=== PATIENT | female | born 1935 | race Asian ===

== ENCOUNTER 2016-11-27 14:50 | Inpatient (IN) | payer OTHER ==
[~2016-11-27 14:50] MED LIST: ADULT LOW DOSE81 MG PO; ASPIRIN325 M2 PO; CARVEDILOL25 M1 PO; CARVEDILOL6.25 M1 PO; COREG12.5 M1 PO; COREG25 M1 PO; FUROSEMIDE40 M1 PO; LISINOPRIL20 M1 PO; LISINOPRIL5 M1 PO; PLAVIX75 M1 PO; PRAVASTATIN SOD80 M2 PO; RANEXA500 M1 PO; VALSARTAN80 M1 PO
--- NOTE | 2016-11-27 16:27 | History & Physical ---
General Information and HPI Chief Complaint: admit to hospice s/p terminal extubation Source of Information: old records Exam Limitations: unable to give history, clinical condition Associated Symptoms: labored respirations History of Present Illness: Pt. is an 81-year-old female s/p VT cardiac arrest, s/p CPR with anoxic brain injury and poor prognosis per neurology. Repeat head CT 4 days post arrest showed significant interval increase in conspicuity of diffuse anoxic brain injury with new near total loss of toth- white distinction, sulcal effacement, and mass effect on the lateral and fourth ventricles. Family decided to have pt extubated, she is stable past extubation though with labored respirations and is admitted to hospice service. 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 Former smoker Functional Ability: Had lived at home. Review of Systems Review of Systems Constitutional: Reports: see HPI. Exam & Diagnostic Data Last 24 Hrs of Vital Signs/I&O T-98.6, HR-65; RR- 12; BP-185/44 Physical Exam General Appearance elderly female, comatose, labored respirations HEENT Atraumatic, dry mucous membranes Cardiovascular Regular Rate, Normal S1, Normal S2 Lungs labored respirations, abdominal breathing, tracheal secretions Abdomen Soft, No Tenderness Neurological comatose Extremities edema to bilat hands Diagnostic Data CXR Results earlier today: IMPRESSION: 1. Endotracheal tube tip 3.9 cm above the diya. 2. Enteric tube tip not included. 3. Enlarged cardiomediastinal silhouette and thoracic aortic aneurysm again seen, unchanged. 4. Bibasilar opacities, most consistent with pleural effusions and associated consolidation or atelectasis. Other Results EEG 11/22/16: Impression: Flat lined nearly complete isoelectric recording that is consistent with minimal brain activity. Head CT 7/15/17: IMPRESSION: Significant interval increase in conspicuity of diffuse anoxic brain injury with new near total loss of toth-white distinction, sulcal effacement, and mass effect on the lateral and fourth ventricles. Assessment/Plan Assessment: Pt. is an 81-year-old female s/p VT cardiac arrest, s/p CPR with anoxic brain injury, near total loss of ttoh-white distinction and edema with mass effect and poor prognosis per neurology. Plan: Continue Keppra 1gm IV Q12 hrs Start morphine drip at 3mg /hr after bolus of 4mg IV. titrate drip per protocol Continue scop. patch for secretions, start Robinul 400mcg IV every 4 hrs Continue monk catheter Ativan 1mg IV every 3 hrs as needed for anxiety/restlessness
[2016-11-28] VITALS: BP 108/70
--- NOTE | 2016-11-28 01:24 | NUR ---
0000 PATIENT RECEIVED UNRESPONSIVE, FAMILY AT BEDSIDE, RESPIRATORY RATE 12-16/MIN- NO S/S OF ACUTE DISTRESS, NO AUDIBLE SECRETIONS, MORPHINE DRIP INFUSING AT 3 MG/HR, BREATHE SOUNDS DIMNISHED LOWER HALF OF FIELD, UPPER AIRWAYS CLEAR, ABDOMEN SOFT, + BS, BATHED WITH DAUGHTERS ASSIST, PATIENT TURNED AND POSITIONED WITH PILLOWS
[2016-11-28 06:00] VITALS: BP 100/70
--- NOTE | 2016-11-28 06:49 | NUR ---
NO CHANGES IN STATUS NOTED OVERNIGHT, RR 12-14/MIN, PATIENT UNRESPONSIVE, PUPILS REMAIN UNEQUAL WITH LEFT 2MM AND REACTIVE TO LIGHT, RIGHT 4MM AND MINIMAL REACTION TO LIGHT- WHITE HAZE NOTED, ? CATARACT, NO S/S RESPIRATORY DISTRESS OR DISCOMFORT NOTED, MORPHINE DRIP REMAINS AT 3MG/HR
--- NOTE | 2016-11-28 09:09 | NUR ---
PT UNRESPONSIVE, NO S/S OF DISTRESS AT THIS TIME. FAMILY NOTIFIED OF TRANSFER TO [facility]. PT TRANSFERRED AT THIS TIME.
--- NOTE | 2016-11-28 11:24 | NUR ---
PT ARRIVED TO FLOOR AT 0905 FROM ICU. UNRESPONSIVE TO VERBAL AND TACTILE STIMULI, RR 12-14, AUDIBLE SECRETIONS, ROOM AIR. MORPHINE GTT RUNNING TO #20 IV IN RIGHT HAND AT 3MG/HR. OTHER #20 IV NOTED IN LFA, SALINE LOCKED. MESA CATH IN PLACE, SCOPALAMINE PATCH TO L EAR. SKIN WARM, DRY, INTACT. SIZEWISE MATTRESS ORDERED. FAMILY AT BEDSIDE, ORIENTED TO ROOM AND CALL [facility]. COMFORT CART ORDERED AND EMOTIONAL SUPPORT PROVIDED. WILL CONTINUE TO MONITOR.
--- NOTE | 2016-11-28 15:51 | PN- Hospice ---
Subjective Subjective: Pt. is unresponsive, but appears comfortable. Remains on morphine drip with no boluses needed. Cody catheter with minimal urine output. Review of Systems Constitutional: Reports: see HPI. Objective Last 24 Hrs of Vital Signs/I&O Vital Signs Date Time Temp Pulse Resp B/P B/P Pulse O2 O2 Flow FiO2 Mean Ox Delivery Rate 11/28 0600 99.4 72 14 100/70 73 Room Air 11/28 0000 99.3 80 14 108/70 71 Room Air Intake & Output 11/28 1600 11/28 0800 11/28 0000 Intake Total 24 121 Output Total 170 160 Balance -146 -39 Intake, IV 24 121 Intake, Oral 0 Number 0 Bowel Movements Output, Urine 170 160 Physical Exam General Appearance: sedated Head: atraumatic Ears, Nose, Throat: dry mucous membranes Respiratory: no respiratory distress, tracheal secretions noted Cardiovascular: regular rate/rhythm, systolic murmur Abdomen: soft Extremities: edema to bilat hands Neurologic/Psychiatric: unresponsive Current Medications: Current Medications Sig/Petra Start time Last Medication Dose Route Stop Time Status Admin Acetaminophen 650 MG Q4P PRN 11/27 1500 AC ID Glycopyrrolate 400 MCG Q4 11/27 1800 AC 11/28 IV 1403 Levetiracetam 1,000 MG Q12 11/27 2200 AC 11/28 N/A 1 UNIT IV 0920 Lorazepam 1 MG Q3P PRN 11/27 1515 AC IV Morphine Sulfate 100 MG CONTINOUS INFUSION 11/27 1500 AC 11/27 Dextrose/Water 100 ML IV 1653 Morphine Sulfate See Dose [id number] PRN 11/27 1500 AC Insts (1) IV Scopolamine HBr 2 PAT Q72H 11/28 1600 AC TOP Scopolamine HBr 1 PAT Q72 11/27 1600 DC 11/27 TOP 1856 Dose Instructions: (1)Morphine Sulfate: TITRATION PROTOCOL: Pain score 1-4 (grimace/moan) give 50% basal rate (max 10mg) as bolus IV or Sub-Q every 20 minutes PRN x3 doses; Pain 5-10 (yelling or visibly distressed) or labored respirations or respiration rate greater than 20/minute give 100% basal rate (max 10mg) as bolus IV or Sub-Q every 20 minutes PRN x3 doses. If above symptoms not improved, increase basal rate by 100% (not more than 10mg increments), and repeat protocol, inform MD. Assessment/Plan Assessment/Recommendations: Pt. is an 81-year-old female s/p VT cardiac arrest, s/p CPR with anoxic brain injury, near total loss of toth-white distinction and edema with mass effect and poor prognosis per neurology. Congestion despite 1 scop patch and scheduled robinul. Increase to 2 scop patches and will add prn robinul. Problem List: 1. Cardiac arrest 2. Anoxic brain damage
== END 2016-11-28 22:01 | disposition expired | DRG 91 ==
LOC: CRI 14:50 → 2NA 11-28 09:07
PROVIDERS: ADMIT Internal Medicine Pulmonary Disease
DX: G93.1 Anoxic brain damage, not elsewhere classified (principal); J69.0 Pneumonitis due to inhalation of food and vomit; Z86.74 Personal history of sudden cardiac arrest; Z51.5 Encounter for palliative care; Z66 Do not resuscitate; I44.7 Left bundle-branch block, unspecified; I44.0 Atrioventricular block, first degree; I25.10 Atherosclerotic heart disease of native coronary artery without angina pectoris
CPT/HCPCS: 2NASP; CCU; J1953; J2270